=== PATIENT | female | born 1985 ===

== ENCOUNTER 2018-04-18 23:06 | Emergency (ER) | payer BC ==
[2018-04-18 23:23] VITALS: RESP 16
[2018-04-18] MEDS ORDERED: Sodium Chloride 0.9% 1,000 ML IV STA (23:50)
--- NOTE | 2018-04-18 23:53 | ED PDOC ---
HPI: Abdomen Time Seen by Provider: 04/18/18 23:30 Chief Complaint (Nursing): Abdominal Pain Chief Complaint (Provider): abdominal pain History Per: Patient History/Exam Limitations: no limitations Onset/Duration Of Symptoms: Hrs Current Symptoms Are (Timing): Still Present Location Of Pain/Discomfort: RLQ, Other (right flank) Associated Symptoms: Nausea, Vomiting Additional Complaint(s): 32 y/o female presents for evaluation of right-sided abdominal pain x 10 hours. Associated nausea, vomiting x 1. Patient states pain now radiating to lower back. Denies fever, chest pain, shortness of breath, palpitations, changes in bowel movements, urinary symptoms. Past Medical History Reviewed: Historical Data, Nursing Documentation, Vital Signs Vital Signs: Last Vital Signs Temp 98.4 F 04/19/18 03:17 Pulse 75 04/19/18 03:17 Resp 16 04/19/18 03:17 BP 117/65 04/19/18 03:17 Pulse Ox 99 04/19/18 03:17 - Medical History PMH: No Chronic Diseases - Surgical History Surgical History: - Family History Family History: States: No Known Family Hx - Home Medications Home Medications: Ambulatory Orders Medication Instructions Recorded Ciprofloxacin HCl [Cipro] 500 mg PO BID #14 tab 04/19/18 Ibuprofen [Motrin Tab] 1 tab PO Q6 PRN #20 tab 04/19/18 Ondansetron ODT [Zofran ODT] 4 mg PO Q8 PRN #10 odt 04/19/18 - Allergies Allergies/Adverse Reactions: Allergies Allergy/AdvReac Type Severity Reaction Status Date / Time No Known Allergies Allergy Verified 04/18/18 23:19 Review of Systems ROS Statement: Except As Marked, All Systems Reviewed And Found Negative Gastrointestinal: Positive for: Nausea, Vomiting, Abdominal Pain Physical Exam - Reviewed Nursing Documentation Reviewed: Yes Vital Signs Reviewed: Yes - Physical Exam Appears: Positive for: Well, Non-toxic, No Acute Distress Head Exam: Positive for: ATRAUMATIC, NORMAL INSPECTION, NORMOCEPHALIC Skin: Positive for: Normal Color Eye Exam: Positive for: Normal appearance ENT: Positive for: Normal ENT Inspection Cardiovascular/Chest: Positive for: Regular Rate, Rhythm Respiratory: Positive for: Normal Breath Sounds Gastrointestinal/Abdominal: Positive for: Bowel Sounds, Soft, Tenderness (right flank) Back: Positive for: Normal Inspection Extremity: Positive for: Normal ROM Neurologic/Psych: Positive for: Alert, Oriented - Laboratory Results Result Diagrams: 04/18/18 00:01 04/18/18 00:01 - ECG O2 Sat by Pulse Oximetry: 98 - Progress ED Course And Treament: labs, urine, IV fluids, IV toradol On re-eval, patient resting comfortably; states pain improved EXAM: CT Abdomen and Pelvis Without Intravenous Contrast CLINICAL HISTORY: 32 years old, female; Pain; Abdominal pain; Localized; Right; Prior surgery; Surgery date: 6+ months; Surgery type: ; Additional info: Right flank pain, vomiting TECHNIQUE: Axial computed tomography images of the abdomen and pelvis without intravenous contrast. All CT scans at this facility use one or more dose reduction techniques, viz.: automated exposure control; ma/kV adjustment per patient size (including targeted exams where dose is matched to indication; i.e. head); or iterative reconstruction technique. 592 images are submitted.Sagittal , axial and coronal MPR reformatted images are submitted. Axial images are submitted in soft tissue and lung windows. COMPARISON: No relevant prior studies available. FINDINGS: Lung bases: Unremarkable. No mass. No consolidation. ABDOMEN: Liver: Enlarged fatty liver. Gallbladder and bile ducts: Contracted gallbladder. Pancreas: Unremarkable. No ductal dilation. Spleen: Unremarkable. No splenomegaly. Adrenals: Unremarkable. No mass. Kidneys and ureters: Mild bilateral hydroureteronephrosis with possible urothelial prominence. No calcified ureteral stones. Correlation with clinical data is recommended if ascending urinary tract infection with possible pyelonephritis as clinically suspected. Stomach and bowel: Diverticulosis. Moderate amount of stool in the colon. There is stool like appearance to the distal small bowel. This may represent slow transit. No obstruction. No mucosal thickening. PELVIS: Appendix: Suboptimally seen normal appendix. Bladder: Bladder distention. Correlation with patient's voiding status is recommended. Reproductive: Anteverted uterus. ABDOMEN and PELVIS: Intraperitoneal space: Unremarkable. No free air. No significant fluid collection Bones/joints: No acute fracture. No dislocation. Soft tissues: There is a fat-containing umbilical hernia. Vasculature: Unremarkable. No abdominal aortic aneurysm. Lymph nodes: Subcentimeter mesenteric lymph nodes. Shotty para-aortic lymph nodes. IMPRESSION: Mild bilateral hydroureteronephrosis with possible urothelial prominence. No calcified ureteral stones. Correlation with clinical data is recommended if ascending urinary tract infection with possible pyelonephritis as clinically suspected Patient educated on findings, IV rocephin ordered. Tolerating PO Patient discharged with rx cipro and ibuprofen Advised follow up PMD 2-3 days. Fluids Return precautions given Disposition - Clinical Impression Clinical Impression: Pyelonephritis - Patient ED Disposition Is Patient to be Admitted: No Counseled Patient/Family Regarding: Studies Performed, Diagnosis, Need For Followup, Rx Given - Disposition Referrals: Silverio Malhotra MD [Primary Care Provider] - Disposition: Routine/Home Disposition Time: 03:29 Condition: IMPROVED Prescriptions: Ciprofloxacin HCl [Cipro] 500 mg PO BID #14 tab Ibuprofen [Motrin Tab] 1 tab PO Q6 PRN #20 tab PRN Reason: Pain, Moderate (4-7) Ondansetron ODT [Zofran ODT] 4 mg PO Q8 PRN #10 odt PRN Reason: Nausea/Vomiting Instructions: Kidney Infection Forms: [facility] (Vietnamese)
[2018-04-19 00:23] LABS: URINE BACTERIA RARE (<OCC); URINE BILIRUBIN NEGATIVE (NEGATIVE); URINE BLOOD MODERATE (NEGATIVE); URINE CLARITY CLOUDY (Clear); URINE COLOR YELLOW (YELLOW); URINE GLUCOSE (UA) NEG (Normal); URINE LEUKOCYTE ESTERASE LARGE Leu/uL (Negative); URINE PROTEIN 100 mg/dL (NEGATIVE); URINE UROBILINOGEN 0.2-1.0 mg/dL (0.2-1.0)
[2018-04-19 00:26] LABS: BASO # 0.1 K/uL (0.0-0.2); BASO % 0.7 % (0.0-2.0); EOS # 0.2 K/uL (0.0-0.7); EOS % 1.9 % (0.0-4.0); HEMOGLOBIN 12.2 g/dL (12.0-16.0); LYMPH # 2.1 K/uL (1.0-4.3); MEAN CELL VOLUME 84.8 fl (81.0-99.0); MEAN CORPUSCULAR HEMOGLOBIN 28.4 pg (27.0-31.0); MEAN CORPUSCULAR HGB CONC 33.5 g/dL (33.0-37.0); MEAN PLATELET VOLUME 7.2 fl (7.2-11.7); MONO # 0.5 K/uL (0.0-0.8); MONO % 5.4 % (0.0-10.0); NEUT # 7.2 K/uL (1.8-7.0); RBC 4.29 Mil/uL (3.80-5.20); RED CELL DISTRIBUTION WIDTH 13.6 % (11.5-14.5); WHITE BLOOD COUNT 10.1 K/uL (4.8-10.8)
[2018-04-19 00:37] LABS: ALB/GLOB RATIO 1.2 (1.0-2.1); ALBUMIN 4.1 g/dL (3.5-5.0); ALT/SGPT 30 U/L (9-52); AST/SGOT 25 U/L (14-36); BLOOD UREA NITROGEN 9 mg/dl (7-17); GFR AFRICAN-AMERICAN > 60; GFR NON-AFRICAN AMERICAN > 60; LIPASE 49 U/L (23-300)
[2018-04-19 03:18] VITALS: BP 117/65; PULSE 75; TEMP 98.4
[2018-04-19 03:29] VITALS: O2SAT 98
--- NOTE | 2018-04-19 08:36 | CT ---
PROCEDURE: CT Abdomen and Pelvis without intravenous contrast HISTORY: right flank pain, vomiting COMPARISON: None. TECHNIQUE: Technique. Contrast dose: None Radiation dose: Total exam DLP = 739 mGy-cm. This CT exam was performed using one or more of the following dose reduction techniques: Automated exposure control, adjustment of the mA and/or kV according to patient size, and/or use of iterative reconstruction technique. FINDINGS: LOWER THORAX: Unremarkable. LIVER: Diffuse fatty infiltration. Borderline hepatomegaly. No gross lesion (limited evaluation for this on noncontrast study) or ductal dilatation. GALLBLADDER AND BILE DUCTS: Unremarkable. PANCREAS: Unremarkable. No gross lesion or ductal dilatation. SPLEEN: Unremarkable. ADRENALS: Unremarkable. No mass. KIDNEYS AND URETERS: There is bilateral mild intrarenal pelviectasis suggested possibly of small concomitant parapelvic cyst not excluded. There is at minimum proximal bilateral ureteral dilatation right greater than left at least to the approximate superior iliac borders. Distal to this tracking each ureter is problematic. No obstructing urolithiasis appreciated. VASCULATURE: Unremarkable. No aortic aneurysm. BOWEL: Redundant colon. Moderate stool retention. No gross mural thickening. APPENDIX: Unremarkable. Normal appendix. PERITONEUM: Unremarkable. No free fluid. No free air. LYMPH NODES: Unremarkable. No enlarged lymph nodes. BLADDER: Moderately distended REPRODUCTIVE: Prominent lobulated uterus - fibroid involvement inferred. Bilateral adnexal blending hypodensities/blending adnexal fullness -ovarian physiological cysts are most likely in this 32-year-old female BONES: No acute fracture. OTHER FINDINGS: Mall fat only containing umbilical hernia IMPRESSION: Bilateral hydro ureteral nephrosis -mild. No obstruction noted. The right proximal ureteral dilatation appears greater than the left. Consider CT urogram for further evaluation Prominent uterus and blending prominent adnexa- as referenced above . Consider correlation with pelvic ultrasound transvaginal technique preferred Moderate stool retention -redundant colon. Concordant results (preliminary interpretation) provided by [facility].
== END 2018-04-19 03:50 | disposition home or self-care (01) ==
LOC: MERGE 23:06 → H.ER 23:06
DX: N12 Tubulo-interstitial nephritis, not specified as acute or chronic (principal)
CPT/HCPCS: 74176; 80053; 81003; 81025; 83690; 85025; 87040; 87086; 96374; 96375; 99283; J0696; J1885; J2405; J7030